=== PATIENT | female | born 1960 | race Caucasian/White ===

== ENCOUNTER 2019-10-26 17:35 | Emergency (ER) | payer BC ==
[2019-10-26 19:31] LABS: ABSOLUTE EOSINOPHILS # (AUTO) 0.1 10^3/uL (0.0-0.6); ABSOLUTE LYMPHOCYTES (AUTO) 2.1 10^3/uL (0.5-4.7); ABSOLUTE MONOCYTES (AUTO) 0.4 10^3/uL (0.1-1.4); ABSOLUTE NEUT (AUTO) 2.6 10^3/uL (1.7-8.2); BASOPHILS % (AUTO) 0.7 % (0-2); HEMATOCRIT 42.8 % (36.0-47.0); HEMOGLOBIN 14.8 g/dL (12.0-15.5); LYMPHOCYTES % (AUTO) 39.8 % (13-45); MEAN CORPUSCULAR HEMOGLOBIN 30.6 pg (27.0-33.4); MEAN CORPUSCULAR HGB CONC 34.7 g/dL (32.0-36.0); MEAN CORPUSCULAR VOLUME 88 fl (80-97); MONOCYTES % (AUTO) 8.4 % (3-13); PLATELET COUNT 245 10^3/uL (150-450); RED BLOOD COUNT 4.85 10^6/uL (3.72-5.28); RED CELL DISTRIBUTION WIDTH 13.2 % (11.5-14.0); SEGMENTED NEUTROPHILS % (AUTO) 49.1 % (42-78); TOTAL CELLS COUNTED % (AUTO) 100 %; WHITE BLOOD COUNT 5.3 10^3/uL (4.0-10.5)
[2019-10-26 19:47] LABS: ALKALINE PHOSPHATASE 87 U/L (38-126); ANION GAP 8 (5-19); ASPARTATE AMINO TRANSFERASE 35 U/L (14-36); BILIRUBIN,TOTAL 0.7 mg/dL (0.2-1.3); BLOOD UREA NITROGEN 7 mg/dL (7-20); CALCIUM 9.6 mg/dL (8.4-10.2); CARBON DIOXIDE 26 mmol/L (22-30); CHLORIDE 104 mmol/L (98-107); GLUCOSE 102 mg/dL (75-110); POTASSIUM 4.1 mmol/L (3.6-5.0); TOTAL PROTEIN 8.1 g/dL (6.3-8.2)
[2019-10-26 20:26] LABS: APPEARANCE,URINE CLEAR; BILIRUBIN,URINE NEGATIVE (NEGATIVE); COLOR,URINE YELLOW; GLUCOSE, URINE NEGATIVE (NEGATIVE); KETONES,URINE NEGATIVE (NEGATIVE); LEUKOCYTE ESTERASE,URINE TRACE (NEGATIVE); NITRITE,URINE NEGATIVE (NEGATIVE); PROTEIN,URINE NEGATIVE (NEGATIVE); URINE SPECIFIC GRAVITY 1.011; UROBILINOGEN,URINE NEGATIVE mg/dL (<2.0)
[2019-10-26] MEDS ORDERED: ONDANSETRON HCL INJ/PF 4 MG/2 ML SDV IV ONE (20:36)
[2019-10-26] MEDS ORDERED: NORMAL SALINE 1000 ML 1,000 ML IV ONE (20:36)
--- NOTE | 2019-10-26 20:39 | ER Document Report ---
ED GI/ - General Chief Complaint: Abdominal Pain Stated Complaint: NAUSEA,VOMITING,DIARRHEA Time Seen by Provider: 10/26/19 20:08 Primary Care Provider: NEIL GONSALEZ MD [Primary Care Provider] - Follow up in 3-5 days Notes: Patient is a 59-year-old female that comes to the emergency department for chief complaint of abdominal pain with intermittent vomiting and diarrhea for the past 5 days. She states abdominal pain is intermittently very sharp, in the middle and left side of her abdomen, she vomited 3 times today, she had 2 loose bowel movements today. She denies any hematemesis or hematochezia, denies fever, denies recent antibiotics, travel, or sick exposures. She denies flank pain, chest pain, or any other complaints. She was only able to eat toast today and nothing else. She has had a cholecystectomy, has had diverticulitis in the past, states she had a colonoscopy within the past 5 years which showed a polyp but nothing else. She also reports she was recently started on Wellbutrin to r eplace her Cymbalta (which she is gradually reducing). - Related Data Allergies/Adverse Reactions: metronidazole [From Flagyl] Allergy (Verified 10/26/19 19:21) Penicillins Allergy (Verified 10/26/19 19:21) Past Medical History - General Information source: Patient - Social History Smoking Status: Never Smoker Frequency of alcohol use: None Drug Abuse: None Lives with: Family Family History: Reviewed & Not Pertinent Patient has homicidal ideation: No - Immunizations Immunizations up to date: Yes Hx Diphtheria, Pertussis, Tetanus Vaccination: Yes Review of Systems - Review of Systems Constitutional: No symptoms reported EENT: No symptoms reported Cardiovascular: No symptoms reported Respiratory: No symptoms reported Gastrointestinal: See HPI Genitourinary: No symptoms reported Female Genitourinary: No symptoms reported Musculoskeletal: No symptoms reported Skin: No symptoms reported Hematologic/Lymphatic: No symptoms reported Neurological/Psychological: No symptoms reported Physical Exam - Vital signs Vitals: Temp Pulse Resp BP 98.5 F 89 16 142/91 H 10/26/19 17:46 10/26/19 17:46 10/26/19 17:46 10/26/19 17:46 - Notes Notes: GENERAL: Alert, interacts well. No acute distress. HEAD: Normocephalic, atraumatic. EYES: Pupils equal, round, and reactive to light. Extraocular movements intact. ENT: Oral mucosa moist, tongue midline. Oropharynx unremarkable. Airway patent. NECK: Full range of motion. Supple. Trachea midline. No lymphadenopathy. LUNGS: Clear to auscultation bilaterally, no wheezes, rales, or rhonchi. No respiratory distress. Non-tender chest wall. HEART: Regular rate and rhythm. No murmur ABDOMEN: Tenderness in the left mid to lower abdomen with wincing tenderness noted. No distention, no rebound tenderness, no tenderness noted otherwise. Bowel sounds present throughout. EXTREMITIES: Moves all 4 extremities spontaneously. No edema, normal radial and dorsalis pedis pulses bilaterally. No cyanosis. BACK: no cervical, thoracic, lumbar midline tenderness. No saddle anesthesia, normal distal neurovascular exam. Moves all extremities in full range of motion. NEUROLOGICAL: Alert and oriented x3. Normal speech. Cranial nerves II through XII grossly intact. Strength 5/5 in all extremities. PSYCH: Very talkative SKIN: Warm, dry, normal turgor. No rashes or lesions noted. Course - Re-evaluation Re-evalutation: Patient talks anxiously about her symptoms in a very lengthy fashion. However she is quite well-appearing. Vital signs unremarkable. Physical exam is unremarkable except she does have significant tenderness in the left lower quadrant compared to the rest of the abdomen. There is no guarding. CBC unremarkable, chemistry and urinalysis unremarkable. CAT scan was performed because of patient's tenderness on exam goes shows large amount of diverticulosis, mild constipation, otherwise unremarkable. No acute findings. Discussed with patient. Patient strongly believes that her symptoms are related to her medication, nausea and abdominal pain can be related to Wellbutrin but I feel based on her exam this is more likely either mild/early diverticulitis versus constipation versus uncertain etiology. Low suspicion of viral etiology based on her work-up and lack of any additional symptoms. Patient tolerated p.o. without any difficulty. I discussed options, decision was made to proceed with coverage for diverticulitis, generalized symptom management, she will have her medications adjusted with her primary care provider, and she will return for any concerning symptoms. Unfortunately patient is allergic to most penicillins and Flagyl, therefore patient will be given moxifloxacin (recommendation with both penicillin and Flagyl allergies), I discussed this at length, treatment plan is asked for patient to withhold treatment for 2 days, if symptoms resolve she would simply follow-up with primary care, if symptoms continue she will start medication and follow-up. Discussed return precautions in addition to this. Patient states understanding and agreement. Stable and well-appearing at time of discharge. - Vital Signs Vital signs: Temp Pulse Resp BP Pulse Ox 98.2 F 70 18 138/72 H 98 10/26/19 23:00 10/26/19 23:00 10/26/19 23:00 10/26/19 23:00 10/26/19 23:00 - Laboratory Result Diagrams: 10/26/19 19:15 10/26/19 19:15 Laboratory results interpreted by me: 10/26/19 17:40 Ur Leukocyte Esterase TRACE H Discharge - Discharge Clinical Impression: Abdominal pain Qualifiers: Abdominal location: generalized Qualified Code(s): R10.84 - Generalized abdominal pain Nausea and vomiting Qualifiers: Vomiting type: unspecified Vomiting Intractability: non-intractable Qualified Code(s): R11.2 - Nausea with vomiting, unspecified Condition: Stable Disposition: HOME, SELF-CARE Additional Instructions: At this time it is uncertain if you have a early/mild diverticulitis, if this is viral, or if this is related to your medications. I recommend that you discuss your Wellbutrin and/or Cymbalta with your provider, these can cause side effects including your symptoms. However because of your tenderness on exam we have agreed to prescribe you an antibiotic for the diverticulitis. You are allergic to the main medications for this, therefore I recommend that you hold the antibiotic for 2 days, do a clear fluid diet for 2 days, take a stool softener, take the nausea medication. If symptoms go away do not take the antibiotic. If symptoms continue start the antibiotic and follow-up with primary care. Come back if you worsen including severe worsening pain, spiking fever, uncontrolled vomiting, or any other concerning or worsening symptoms. Prescriptions: Docusate Sodium [Colace 100 mg Capsule] 100 mg PO ASDIR PRN #30 capsule PRN Reason: Moxifloxacin HCl 400 mg PO DAILY 5 Days #5 tablet Promethazine HCl [Phenergan 25 mg Tablet] 25 mg PO Q6H PRN #20 tablet PRN Reason: Referrals: NEIL GONSALEZ MD [Primary Care Provider] - Follow up in 3-5 days
--- NOTE | 2019-10-26 22:32 | RADIOLOGY REPORT (SQ) ---
EXAM DESCRIPTION: CT ABDOMEN PELVIS WITH IV CONTRAST COMPLETED DATE/TME: 10/26/2019 20:37 CLINICAL HISTORY: 59 years, Female, sharp left abd pain This exam was performed according to our departmental dose-optimization program which includes automated exposure control, adjustment of the mA and/or kVp according to patient size and/or use of iterative reconstruction technique where applicable. FINDINGS: Visualized lung bases are within normal limits. Liver, spleen, pancreas, adrenal glands and kidneys are within normal limits. No hydronephrosis or biliary dilatation. Status post cholecystectomy. No dilated loops of bowel to suggest obstruction. Mild amount of stool in the colon. Appendix is normal. No free fluid or free air. Moderate sigmoid diverticulosis without CT evidence for acute diverticulitis. No abdominal or pelvic lymphadenopathy. Abdominal aorta is within normal limits. IMPRESSION: No acute appendicitis. Moderate sigmoid colonic diverticulosis without CT evidence for acute diverticulitis.
[2019-10-26] MEDS ORDERED: ONDANSETRON ODT 4 MG TAB (6 TAB/ER DISP) PO PRN (22:45)
[2019-10-26] MEDS ORDERED: HYDROCODONE/ACETAMINOPHEN 5-325 MG (6 TAB/ER DISP) PO PRN (22:45)
[2019-10-26 23:02] VITALS: BP 138/72
== END 2019-10-26 23:00 | disposition home or self-care (01) ==
LOC: ER 17:35
DX: R10.84 Generalized abdominal pain (principal); R11.2 Nausea with vomiting, unspecified; R19.7 Diarrhea, unspecified
CPT/HCPCS: 99284; 96361; 96374; 36415; 83690; 85025; 80053; 81001; 74177; J2405; J7030